=== PATIENT | male | born 1995 | race Caucasian/White ===

== ENCOUNTER → 2017-01-29 | Outpatient (CLI) | payer OTHER | END | disposition home or self-care (01) | LOC: C.LABPVFM 12:24 | PROVIDERS: ATTEND Nurse Practitioner Family | DX: J02.9 Acute pharyngitis, unspecified (principal) ==

== ENCOUNTER 2023-12-13 15:28 | Inpatient (IN) ==
--- NOTE | 2023-12-13 15:53 | Emergency Department Note ---
Impression & Plan Obstructive jaundice, Transaminitis ED Provider Note HISTORY OF PRESENT ILLNESS: Patient is a 28-year-old male presenting with jaundice. Patient reports that he started noticing that his skin was yellow 6 days ago. He states that the yellowing discoloration progressed and he went to [place] today but was referred to the emergency department. Patient reports has had diarrhea for 1.5 weeks. He reports he has had some subtle weight loss in the last 2 weeks. Denies any abdominal pain, nausea or vomiting. He denies any chest pain or shortness of breath. He denies any recent medication changes, as he does not take any medications. He denies any recent fevers. Denies any recent travel outside of the country. He reports that he recently traveled to [facility] this past weekend. ROS: as above PHYSICAL EXAM: Constitutional: Patient appears in no acute distress. HENT: Head: Normocephalic and atraumatic. Eyes: EOMI, PERRL. Scleral icterus. Mouth/Throat: Mucous membranes moist. Neck: Trachea midline. Neck supple. Cardiovascular: RRR, No murmurs, rubs or gallops. Intact distal pulses. Pulmonary/Chest: No respiratory distress. Breath sounds clear and equal bilaterally. No wheezes or rales. Abdominal: Abdomen soft, no tenderness, rebound or guarding. Musculoskeletal: No edema, tenderness or deformity noted. Skin: Warm and dry. Patient has diffuse jaundice. Psychiatric: Appropriate mood and affect for situation. Neurological: Alert and keenly responsive. CN II-XII grossly intact, moving all extremities equally and fully. MDM: - Vitals signs stable. - History obtained via patient. History as above. - Chronic conditions affecting care: None - Differential diagnoses include, but are not limited to: Obstructive jaundice; pancreatic mass; tickborne illness; hepatitis - Order placed for continuous cardiac monitoring. At this time, monitor showed rate of 78 bpm with normal sinus rhythm, per my interpretation. - External medical records reviewed. - Laboratory workup interpreted by myself showed normal WBC; normal PT/INR; stable electrolytes; elevated total bilirubin (14.1); elevated direct bilirubin (8.4); transaminitis (AST 86; ALT 131); elevated alkaline phosphatase (147); negative alcohol; negative monospot; negative anaplasma smear - Lipase unable to be resulted secondary to icteric interference, per the laboratory. - Hepaitis panel ordered. - CT abdomen/pelvis with IV contrast negative for acute pathology. - US gallbladder showed no gallstones or biliary ductal dilatation. Noted to have a possible 3.3 cm isoechoic lateral segment hepatic lesion, and radiology recommends a nonemergent liver protocol MRI. - Laboratory workup is concerning for an obstructive jaundice. - Discussed case with GI physician healthcare network consultant, Dr. Owens, at 21:10. Will plan to see patient in the morning as consultation service. - Discussion was had with case liner about patient's case and need for admission - Hospitalist consulted for admission - [facility] ASSESSMENT AND PLAN: Diagnosis: Obstructive jaundice; transaminitis Plan: admit Past Med/Surg History Problem List (Updated 12/13/23 @ 21:07 by Nancy Ma MD) Transaminitis (Acute) Obstructive jaundice (Acute) No known health problems Social History Smoking Status: Never smoker Preferred Language: [place]raini Feels Safe at Home: Yes Allergies Allergies Allergy/AdvReac Type Severity Reaction Status Date / Time No Known Allergies Allergy Verified 12/13/23 17:11 Home Meds Home Medications Medication Instructions Recorded Confirmed No Known Home Medications 12/13/23 12/13/23 Results & Data (ED) Vital Signs Vital Signs - 24 hr 12/13/23 15:36 12/13/23 15:49 12/13/23 15:58 Temperature 36.7 C Temperature Source Temporal Artery Scan Pulse Rate 75 89 Pulse Rate [Finger] 75 Respiratory Rate 20 14 Respiratory Effort / Characteristics Non-Labored Spontaneous Non-Labored Spontaneous Respiratory Depth Normal Normal Respiratory Pattern Regular Blood Pressure 125/82 Blood Pressure [Left Arm] 133/85 Blood Pressure Mean 96 Blood Pressure Mean [Left Arm] 101 Blood Pressure Position [Left Arm] Pulse Oximetry 98 100 Oxygen Delivery Method Room Air Room Air Sepsis Recent Fever Within 48 Hours No Sepsis New/Unexplained Change in Mental Status N/A Sepsis Action Taken by Nursing No Action Required 12/13/23 15:58 12/13/23 16:50 12/13/23 17:00 Temperature Temperature Source Pulse Rate 66 Pulse Rate [Finger] 70 78 Respiratory Rate 15 20 15 Respiratory Effort / Characteristics Non-Labored Spontaneous Non-Labored Respiratory Depth Normal Normal Respiratory Pattern Regular Regular Blood Pressure Blood Pressure [Left Arm] 136/74 130/68 Blood Pressure Mean Blood Pressure Mean [Left Arm] 94 88 Blood Pressure Position [Left Arm] Semi-fowlers Pulse Oximetry 100 98 100 Oxygen Delivery Method Room Air Room Air Room Air Sepsis Recent Fever Within 48 Hours Sepsis New/Unexplained Change in Mental Status Sepsis Action Taken by Nursing Laboratory Data 12/13/23 15:50 12/13/23 15:50 Lab Results 12/13/23 12/13/23 12/13/23 Range/Units 15:50 16:18 17:59 WBC 7.82 (4.8-10.8) K/ul RBC 5.63 (4.70-6.10) M/uL Hgb 15.7 (14.0-18.0) g/dl Hct 46.2 (42.0-52.0) % MCV 82.1 (80.0-100.0) fL MCH 27.9 (25.0-34.0) pg MCHC 34.0 (32.0-36.0) g/dL RDW Std Deviation 43.1 (36.4-46.3) fL RDW Coeff of Yasmani 14.6 H (11.5-14.5) % Plt Count 497 H (130-400) K/uL MPV 10.4 (9.4-12.4) fL Immature Gran % (Auto) 1.2 % Neut % (Auto) 64.0 % Lymph % (Auto) 19.6 % [place] % (Auto) 10.2 % Eos % (Auto) 3.8 % Baso % (Auto) 1.2 % Neut # (Auto) 5.01 (1.40-6.50) K/uL Lymph # (Auto) 1.53 (1.20-3.40) K/uL [place] # (Auto) 0.80 H (0.11-0.59) K/uL Eos # (Auto) 0.30 (0.00-0.50) K/uL Baso # (Auto) 0.09 (0.00-0.20) K/uL Immature Gran # (Auto) 0.09 (0.01-0.20) K/uL PT 11.0 (9.0-12.0) Seconds INR 1.0 (0.9-1.1) Sodium 136 (136-145) mmol/L Potassium 4.0 (3.5-5.1) mmol/L Chloride 99 (98-107) mmol/L Carbon Dioxide 26 (21-32) mmol/L Anion Gap 11 (3-11) BUN 17 (6-23) mg/dl Creatinine 1.34 (0.6-1.4) mg/dl Est Cr Clr Drug Dosing 99.8 ml/min Est GFR ( Amer) 84.1 ml/min Est GFR (Non-Af Amer) 72.6 ml/min BUN/Creatinine Ratio 12.7 (10-20) Glucose 90 (70-99(Fasting)) mg/dl Lactate 1.1 (0.4-2.0) mmol/L Calcium 10.3 (8.6-10.3) mg/dl Total Bilirubin 14.1 H (0.2-1.0) mg/dl Direct Bilirubin 8.4 H (0-0.2) mg/dl AST 86 H (13-39) U/L ALT 141 H (7-52) U/L Alkaline Phosphatase 147 H (34-104) U/L Total Protein 8.7 H (6.0-8.3) gm/dl Albumin 5.0 (3.4-5.0) gm/dl Globulin 3.7 (2.5-4.0) gm/dl Albumin/Globulin Ratio 1.4 (0.9-2) Lipase TNP Urine Color Dark Yellow Urine Appearance Clear (Clear) Urine pH 5.5 (4.5-7.5) Ur Specific [place] 1.020 (1.000-1.030) Urine Protein Negative (Negative) Urine Glucose (UA) Negative (Negative) Urine Ketones Trace H (Negative) Urine Blood Negative (Negative) Urine Nitrite Negative (Negative) Urine Bilirubin 3+ H (Negative) Urine Urobilinogen Negative (Negative) Ur Leukocyte Esterase Negative (Negative) Ethyl Alcohol mg/dL < 10.0 (<10.0) mg/dl Anaplasma Smear See Comment Hep Bs Antigen Negative (Negative) Hepatitis C Antibody Negative (Negative) Monoscreen Negative (Negative) Administered Medications Discontinued Medications Ioversol (Optiray 320 100ml) 93 ml IV ONCE ONE Stop: 12/13/23 16:44 Last Admin: 12/13/23 16:44 Dose: 93 ml Documented By: [facility] Imaging Data Radiologist's Impression: Gallbladder Ultrasound 12/13/23 15:39 US gallbladder CLINICAL HISTORY: Jaundice. COMPARISON STUDY: CT of the abdomen and pelvis performed earlier today. FINDINGS: Liver morphology is normal. There is a possible 3.3 x 2.6 x 2.9 cm isoechoic lateral segment hepatic lesion. This is difficult to differentiate from the adjacent liver parenchyma. No additional hepatic lesions are identified. There is no biliary ductal dilatation. The common bile duct measures 3 mm in caliber. The pancreas is unremarkable by sonography although the tail is slightly obscured. The gallbladder is contracted. There are no gallstones. There is no right hydronephrosis. IMPRESSION: 1. No gallstones or biliary ductal dilatation. 2. Possible 3.3 cm isoechoic lateral segment hepatic lesion. This may be artifactual however etiologies such as focal nodular hyperplasia are within the differential. A benign etiology is favored however this is indeterminate and a nonemergent liver protocol MRI is recommended for further evaluation. ACT 112: Negative or not required by law. Electronically signed by: Temo Carrillo M.D. 12/13/2023 5:57 PM Abdomen/Pelvis CT 12/13/23 15:51 CT OF THE ABDOMEN AND PELVIS WITH CONTRAST CLINICAL HISTORY: Painless jaundice. COMPARISON STUDY: CT of the abdomen and pelvis July 08, 2022. TECHNIQUE: Following IV administration of 93 mL of Optiray, axial images of the abdomen and pelvis were obtained from the lung bases to the proximal femurs. Images were reviewed in the axial, sagittal, and coronal planes. IV contrast was administered without complication. Automated exposure control was utilized for the study. A dose lowering technique was utilized adhering to the principles of ALARA. CT DOSE: 904.25 mGy.cm FINDINGS: Visualized portions of the lung bases are unremarkable. There is no pneumatosis, free air or portal venous gas. Liver morphology is normal. There are no hepatic lesions. There is no biliary or pancreatic ductal dilatation. The main, left and right portal veins are patent. No pancreatic lesion. Spleen, adrenal glands and kidneys are unremarkable. There is no hydronephrosis. No peripancreatic or pericholecystic infiltration is present. Caliber of small and large bowel are normal. Apparent colonic wall thickening is likely due to underdistention. Slight thickening of the appendix is unchanged. No periappendiceal infiltration is present. There is no evidence for acute appendicitis. Major vasculature is patent is no lymphadenopathy. No fluid collections are present. IMPRESSION: 1. No acute process within the abdomen or pelvis. 2. No biliary or pancreatic ductal dilatation. Normal liver morphology. No hepatic lesions. ACT 112: Negative or not required by law. Electronically signed by: Temo Carrillo M.D. 12/13/2023 4:53 PM Discharge Plan Visit Data Chief Complaint: Illness Stated Complaint: REF BY URGENT CARE, POSSIBLE JAUNDICE ED Provider: Nancy Ma Discharge Problem: Obstructive jaundice, Transaminitis Forms Stand Alone Forms: [facility] [employer] Prescriptions Prescriptions: No Action No Known Home Medications Referrals Referrals: PCP,NO [Primary Care Provider] -
[2023-12-13 16:06] LABS: Basophils # (auto) 0.09 K/uL (0.00-0.20); Basophils % (auto) 1.2 %; Eosinophils % (auto) 3.8 %; Hematocrit (blood only) 46.2 % (42.0-52.0); Hemoglobin 15.7 g/dl (14.0-18.0); Immature Granulocytes # (auto) 0.09 K/uL (0.01-0.20); Immature Granulocytes % (auto) 1.2 %; Lymphocytes # (auto) 1.53 K/uL (1.20-3.40); Lymphocytes % (auto) 19.6 %; Mean Corpuscular Hemoglobin 27.9 pg (25.0-34.0); Mean Corpuscular Volume 82.1 fL (80.0-100.0); Mean Platelet Volume 10.4 fL (9.4-12.4); Monocytes % (auto) 10.2 %; Neutrophils # (auto) 5.01 K/uL (1.40-6.50); Platelet Count 497 K/uL (130-400); RDW Coefficient of Variation 14.6 % (11.5-14.5); RDW Standard Deviation 43.1 fL (36.4-46.3); Red Blood Count 5.63 M/uL (4.70-6.10); White Blood Count 7.82 K/ul (4.8-10.8)
[2023-12-13 16:26] LABS: Alanine Aminotransferase 141 U/L (7-52); Albumin Globulin Ratio 1.4 (0.9-2); Alkaline Phosphatase 147 U/L (34-104); Anion Gap 11 (3-11); Aspartate Aminotransferase 86 U/L (13-39); BUN Creatinine Ratio 12.7 (10-20); Bilirubin,Total 14.1 mg/dl (0.2-1.0); Blood Urea Nitrogen 17 mg/dl (6-23); Calcium 10.3 mg/dl (8.6-10.3); Carbon Dioxide 26 mmol/L (21-32); Chloride 99 mmol/L (98-107); Creatinine Clr Calc Pharmacy 99.8 ml/min; Est GFR (African American) 84.1 ml/min; Est GFR (Non-African American) 72.6 ml/min; Globulin 3.7 gm/dl (2.5-4.0); Glucose 90 mg/dl (70-99(Fasting)); Sodium 136 mmol/L (136-145); Total Protein 8.7 gm/dl (6.0-8.3)
[2023-12-13 16:32] LABS: Appearance Urine Clear (Clear); Bilirubin Urine 3+ (Negative); Blood Urine Negative (Negative); Color Urine Dark Yellow; Glucose Urine UA Negative (Negative); Ketones Urine Trace (Negative); Leukocyte Esterase Urine Negative (Negative); Nitrite Urine Negative (Negative); Protein Urine Negative (Negative); Urobilinogen Urine Negative (Negative); pH Urine 5.5 (4.5-7.5)
[2023-12-13] MEDS: OPTIRAY 320 100ml IV ONE (16:44)
--- NOTE | 2023-12-13 16:55 | CT Scan Report ---
CT OF THE ABDOMEN AND PELVIS WITH CONTRAST CLINICAL HISTORY: Painless jaundice. COMPARISON STUDY: CT of the abdomen and pelvis July 08, 2022. TECHNIQUE: Following IV administration of 93 mL of Optiray, axial images of the abdomen and pelvis we re obtained from the lung bases to the proximal femurs. Images were reviewed in the axial, sagittal, and coronal planes. IV contrast was administered without complication. Automated exposure control wa s utilized for the study. A dose lowering technique was utilized adhering to the principles of ALARA . CT DOSE: 904.25 mGy.cm FINDINGS: Visualized portions of the lung bases are unremarkable. There is no pneumatosis, free air o r portal venous gas. Liver morphology is normal. There are no hepatic lesions. There is no biliary or pancreatic ductal dilatation. The main, left and right portal veins are patent. No pancreatic lesion . Spleen, adrenal glands and kidneys are unremarkable. There is no hydronephrosis. No peripancreatic or pericholecystic infiltration is present. Caliber of small and large bowel are normal. Apparent col onic wall thickening is likely due to underdistention. Slight thickening of the appendix is unchanged . No periappendiceal infiltration is present. There is no evidence for acute appendicitis. Major vasc ulature is patent is no lymphadenopathy. No fluid collections are present. IMPRESSION: 1. No acute process within the abdomen or pelvis. 2. No biliary or pancreatic ductal dilatation. Normal liver morphology. No hepatic lesions. ACT 112: Negative or not required by law. Electronically signed by: Temo Carrillo M.D. 12/13/2023 4:53 PM
[2023-12-13 17:49] LABS: Hep B Surface Ag with confirm Negative (Negative)
[2023-12-13 17:55] LABS: Hep C Ab Rflx HepCQuant RNA Negative (Negative)
--- NOTE | 2023-12-13 17:59 | Ultrasound Report ---
US gallbladder CLINICAL HISTORY: Jaundice. COMPARISON STUDY: CT of the abdomen and pelvis performed earlier today. FINDINGS: Liver morphology is normal. There is a possible 3.3 x 2.6 x 2.9 cm isoechoic lateral segmen t hepatic lesion. This is difficult to differentiate from the adjacent liver parenchyma. No additiona l hepatic lesions are identified. There is no biliary ductal dilatation. The common bile duct measure s 3 mm in caliber. The pancreas is unremarkable by sonography although the tail is slightly obscured. The gallbladder is contracted. There are no gallstones. There is no right hydronephrosis. IMPRESSION: 1. No gallstones or biliary ductal dilatation. 2. Possible 3.3 cm isoechoic lateral segment hepatic lesion. This may be artifactual however etiologi es such as focal nodular hyperplasia are within the differential. A benign etiology is favored howeve r this is indeterminate and a nonemergent liver protocol MRI is recommended for further evaluation. ACT 112: Negative or not required by law. Electronically signed by: Temo Carrillo M.D. 12/13/2023 5:57 PM
[2023-12-13 18:16] LABS: Bilirubin Direct 8.4 mg/dl (0-0.2)
--- NOTE | 2023-12-13 23:21 | History & Physical Report ---
Date of Service December 13, 2023 Assessment & Plan (1) Jaundice: Plan: 28-year-old male with no significant past medical history comes with jaundice. Patient states he noticed yellow discoloration about a week ago and is not getting better so he went to [facility] today and was advised to come here. Total bilirubin is 14.1. Direct bilirubin 8.4. AST 86. ALT 141. ALT alkaline phos is 147. Patient denies any alcohol use. Denies any drug use. In October he was in [place]. Denies any fevers. Appetite is okay. No body aches or weakness or fatigue. No nausea/ vomiting. He states having diarrhea 3-4 times daily since last 1 and 1/2 weeks. Stool colors are yellow. Thinks he lost some weight because of diarrhea. No headaches. No dizziness. No runny nose or sore throat. No cough. No difficulty swallowing. No chest pain or shortness of breath. No abdominal pain. Urine is somewhat dark. Ambulating okay. Currently resting comfortably and hemodynamically stable. Jaundice Total bilirubin 14.1 Direct bilirubin 8.4 AST 86, ALT 141, alk phos 147 CT abdomen pelvis unremarkable Gallbladder ultrasound unremarkable except for possible 3.3 cm lateral segment hepatic lesion most likely benign nonemergent liver protocol MRI is recommended Anaplasma smear and monoscreen negative Will check for Babesia screen Hepatitis C negative Will follow hepatitis panel IV fluids Repeat labs in a.m. Consult GI in a.m. for further recommendations Close monitor DVT prophylaxis SCDs for now Disposition Medical floor Full code. History of Present Illness Chief Complaint: Jaundice Primary Care Provider: NO PCP 28-year-old male with no significant past medical history comes with jaundice. Patient states he noticed yellow discoloration about a week ago and is not getting better so he went to [facility] today and was advised to come here. Total bilirubin is 14.1. Direct bilirubin 8.4. AST 86. ALT 141. ALT alkaline phos is 147. Patient denies any alcohol use. Denies any drug use. In October he was in [place]. Denies any fevers. Appetite is okay. No body aches or wea kness or fatigue. No nausea/ vomiting. He states having diarrhea 3-4 times daily since last 1 and 1/2 weeks. Stool colors are yellow. Thinks he lost some weight because of diarrhea. No headaches. No dizziness. No runny nose or sore throat. No cough. No difficulty swallowing. No chest pain or shortness of breath. No abdominal pain. Urine is somewhat dark. Ambulating okay. Currently resting comfortably and hemodynamically stable. Past medical history none Past surgical history. Right knee surgery. Social history. No smoking. No alcohol use. No drug use. Family history. Patient denies any family history. Allergies Allergy/AdvReac Type Severity Reaction Status Date / Time No Known Allergies Allergy Verified 12/13/23 17:11 Home Medications Medication Instructions Recorded Confirmed Type No Known Home Medications 12/13/23 12/13/23 History Past Med/Surg History Problem List (Updated 12/13/23 @ 23:25 by Trevon Damon MD) Jaundice Transaminitis (Acute) Obstructive jaundice (Acute) No known health problems Social History Smoking Status: Never smoker Hx Alcohol Use: Yes Alcohol type: beer Hx Substance Use: No Preferred Language: Tamazight Communication Ability: Effective Budget Report Clerk Required: No Beliefs That Will Affect Care: None Current Living Situation: Alone Other Information That Helps Us Care for You: No Feels Safe at Home: Yes Safety Concerns: Feels Safe At This Time Review of Systems Review of Systems: All systems reviewed & are unremarkable except as noted in HPI & below Physical Exam Physical Exam: General- adult Head- atraumatic Eyes- PERRL,icterus present ENT- oropharynx clear Neck- supple, no JVD. Lungs- clear to auscultation no wheezing or crackles Heart- regular rhythm; no murmur, no gallop. Abdomen- normal bowel sounds, soft, nontender, no distension Extremities- no pretibial edema, no erythema seen Neuro- alert, oriented PERRL, EOMI; no facial palsy; no dysarthria; moves extremities Skin- yellow discoloration noted Results & Data Results & Data Vital Signs (Past 12 Hours) Vital Signs Temp Pulse Pulse Resp BP BP Pulse Ox 12/13/23 22:30 71 14 98 12/13/23 22:24 73 23 97 12/13/23 22:15 72 16 98 12/13/23 22:01 128/77 12/13/23 22:01 128/77 12/13/23 22:01 128/77 12/13/23 22:01 128/77 12/13/23 22:00 65 20 99 12/13/23 21:57 68 23 98 12/13/23 21:42 73 23 98 12/13/23 21:30 69 19 99 12/13/23 21:21 68 22 99 12/13/23 21:15 72 18 98 12/13/23 21:09 64 21 98 12/13/23 21:01 121/93 12/13/23 21:01 121/93 12/13/23 20:51 71 22 97 12/13/23 20:33 77 17 99 12/13/23 20:21 67 17 97 12/13/23 20:06 69 21 98 12/13/23 19:54 75 19 98 12/13/23 19:30 66 16 98 12/13/23 19:27 71 22 98 12/13/23 19:15 68 16 98 12/13/23 19:00 149/63 H 12/13/23 19:00 149/63 H 12/13/23 18:42 69 17 98 12/13/23 18:39 64 18 97 12/13/23 18:21 67 17 98 12/13/23 18:12 69 16 97 12/13/23 18:00 136/79 12/13/23 18:00 136/79 12/13/23 18:00 83 21 100 12/13/23 17:01 130/68 12/13/23 17:01 130/68 12/13/23 17:01 130/68 12/13/23 17:01 130/68 12/13/23 17:00 78 15 130/68 100 12/13/23 16:50 136/74 12/13/23 16:50 70 20 136/74 98 12/13/23 16:33 70 17 100 12/13/23 16:12 100 12/13/23 16:09 98 12/13/23 15:58 66 15 100 12/13/23 15:58 75 14 133/85 100 12/13/23 15:51 74 18 99 12/13/23 15:49 89 12/13/23 15:36 36.7 C 75 20 125/82 98 O2 Del Method 12/13/23 22:30 12/13/23 22:24 12/13/23 22:15 08/10/24 22:01 12/13/23 22:01 12/13/23 22:01 12/13/23 22:01 12/13/23 22:00 12/13/23 21:57 12/13/23 21:42 12/13/23 21:30 12/13/23 21:21 12/13/23 21:15 12/13/23 21:09 12/13/23 21:01 12/13/23 21:01 12/13/23 20:51 12/13/23 20:33 12/13/23 20:21 12/13/23 20:06 12/13/23 19:54 12/13/23 19:30 12/13/23 19:27 12/13/23 19:15 12/13/23 19:00 12/13/23 19:00 12/13/23 18:42 12/13/23 18:39 12/13/23 18:21 12/13/23 18:12 12/13/23 18:00 12/13/23 18:00 12/13/23 18:00 12/13/23 17:01 12/13/23 17:01 12/13/23 17:01 12/13/23 17:01 12/13/23 17:00 Room Air 12/13/23 16:50 12/13/23 16:50 Room Air 12/13/23 16:33 12/13/23 16:12 12/13/23 16:09 12/13/23 15:58 Room Air 12/13/23 15:58 Room Air 12/13/23 15:51 12/13/23 15:49 12/13/23 15:36 Room Air Diagnostic Findings Laboratory Results WBC 7.82 K/ul (4.8-10.8) 12/13/23 15:50 RBC 5.63 M/uL (4.70-6.10) 12/13/23 15:50 Hgb 15.7 g/dl (14.0-18.0) 12/13/23 15:50 Hct 46.2 % (42.0-52.0) 12/13/23 15:50 MCV 82.1 fL (80.0-100.0) 12/13/23 15:50 MCH 27.9 pg (25.0-34.0) 12/13/23 15:50 MCHC 34.0 g/dL (32.0-36.0) 12/13/23 15:50 RDW Std Deviation 43.1 fL (36.4-46.3) 12/13/23 15:50 RDW Coeff of Yasmani 14.6 % (11.5-14.5) H 12/13/23 15:50 Plt Count 497 K/uL (130-400) H 12/13/23 15:50 MPV 10.4 fL (9.4-12.4) 12/13/23 15:50 Immature Gran % (Auto) 1.2 % 12/13/23 15:50 Neut % (Auto) 64.0 % 12/13/23 15:50 Lymph % (Auto) 19.6 % 12/13/23 15:50 Brule % (Auto) 10.2 % 12/13/23 15:50 Eos % (Auto) 3.8 % 12/13/23 15:50 Baso % (Auto) 1.2 % 12/13/23 15:50 Neut # (Auto) 5.01 K/uL (1.40-6.50) 12/13/23 15:50 Lymph # (Auto) 1.53 K/uL (1.20-3.40) 12/13/23 15:50 Brule # (Auto) 0.80 K/uL (0.11-0.59) H 12/13/23 15:50 Eos # (Auto) 0.30 K/uL (0.00-0.50) 12/13/23 15:50 Baso # (Auto) 0.09 K/uL (0.00-0.20) 12/13/23 15:50 Immature Gran # (Auto) 0.09 K/uL (0.01-0.20) 12/13/23 15:50 PT 11.0 Seconds (9.0-12.0) 12/13/23 15:50 INR 1.0 (0.9-1.1) 12/13/23 15:50 Sodium 136 mmol/L (136-145) 12/13/23 15:50 Potassium 4.0 mmol/L (3.5-5.1) 12/13/23 15:50 Chloride 99 mmol/L (98-107) 12/13/23 15:50 Carbon Dioxide 26 mmol/L (21-32) 12/13/23 15:50 Anion Gap 11 (3-11) 12/13/23 15:50 BUN 17 mg/dl (6-23) 12/13/23 15:50 Creatinine 1.34 mg/dl (0.6-1.4) 12/13/23 15:50 Est Cr Clr Drug Dosing 99.8 ml/min 12/13/23 15:50 Est GFR ( Amer) 84.1 ml/min 12/13/23 15:50 Est GFR (Non-Af Amer) 72.6 ml/min 12/13/23 15:50 BUN/Creatinine Ratio 12.7 (10-20) 12/13/23 15:50 Glucose 90 mg/dl (70-99(Fasting)) 12/13/23 15:50 Lactate 1.1 mmol/L (0.4-2.0) 12/13/23 15:50 Calcium 10.3 mg/dl (8.6-10.3) 12/13/23 15:50 Total Bilirubin 14.1 mg/dl (0.2-1.0) H 12/13/23 15:50 Direct Bilirubin 8.4 mg/dl (0-0.2) H 12/13/23 15:50 AST 86 U/L (13-39) H 12/13/23 15:50 ALT 141 U/L (7-52) H 12/13/23 15:50 Alkaline Phosphatase 147 U/L (34-104) H 12/13/23 15:50 Total Protein 8.7 gm/dl (6.0-8.3) H 12/13/23 15:50 Albumin 5.0 gm/dl (3.4-5.0) 12/13/23 15:50 Globulin 3.7 gm/dl (2.5-4.0) 12/13/23 15:50 Albumin/Globulin Ratio 1.4 (0.9-2) 12/13/23 15:50 Lipase TNP 12/13/23 15:50 Urine Color Dark Yellow 12/13/23 16:18 Urine Appearance Clear (Clear) 12/13/23 16:18 Urine pH 5.5 (4.5-7.5) 12/13/23 16:18 Ur Specific [place] 1.020 (1.000-1.030) 12/13/23 16:18 Urine Protein Negative (Negative) 12/13/23 16:18 Urine Glucose (UA) Negative (Negative) 12/13/23 16:18 Urine Ketones Trace (Negative) H 12/13/23 16:18 Urine Blood Negative (Negative) 12/13/23 16:18 Urine Nitrite Negative (Negative) 12/13/23 16:18 Urine Bilirubin 3+ (Negative) H 12/13/23 16:18 Urine Urobilinogen Negative (Negative) 12/13/23 16:18 Ur Leukocyte Esterase Negative (Negative) 12/13/23 16:18 Ethyl Alcohol mg/dL < 10.0 mg/dl (<10.0) 12/13/23 17:59 Anaplasma Smear See Comment 12/13/23 15:50 Hep Bs Antigen Negative (Negative) 12/13/23 15:50 Hepatitis C Antibody Negative (Negative) 12/13/23 15:50 Monoscreen Negative (Negative) 12/13/23 15:50 Impressions Gallbladder Ultrasound 12/13/23 15:39 US gallbladder CLINICAL HISTORY: Jaundice. COMPARISON STUDY: CT of the abdomen and pelvis performed earlier today. FINDINGS: Liver morphology is normal. There is a possible 3.3 x 2.6 x 2.9 cm isoechoic lateral segment hepatic lesion. This is difficult to differentiate from the adjacent liver parenchyma. No additional hepatic lesions are identified. There is no biliary ductal dilatation. The common bile duct measures 3 mm in caliber. The pancreas is unremarkable by sonography although the tail is slightly obscured. The gallbladder is contracted. There are no gallstones. There is no right hydronephrosis. IMPRESSION: 1. No gallstones or biliary ductal dilatation. 2. Possible 3.3 cm isoechoic lateral segment hepatic lesion. This may be artifactual however etiologies such as focal nodular hyperplasia are within the differential. A benign etiology is favored however this is indeterminate and a nonemergent liver protocol MRI is recommended for further evaluation. ACT 112: Negative or not required by law. Electronically signed by: Temo Carrillo M.D. 12/13/2023 5:57 PM Abdomen/Pelvis CT 12/13/23 15:51 CT OF THE ABDOMEN AND PELVIS WITH CONTRAST CLINICAL HISTORY: Painless jaundice. COMPARISON STUDY: CT of the abdomen and pelvis July 08, 2022. TECHNIQUE: Following IV administration of 93 mL of Optiray, axial images of the abdomen and pelvis were obtained from the lung bases to the proximal femurs. Images were reviewed in the axial, sagittal, and coronal planes. IV contrast was administered without complication. Automated exposure control was utilized for the study. A dose lowering technique was utilized adhering to the principles of ALARA. CT DOSE: 904.25 mGy.cm FINDINGS: Visualized portions of the lung bases are unremarkable. There is no pneumatosis, free air or portal venous gas. Liver morphology is normal. There are no hepatic lesions. There is no biliary or pancreatic ductal dilatation. The main, left and right portal veins are patent. No pancreatic lesion. Spleen, adrenal glands and kidneys are unremarkable. There is no hydronephrosis. No peripancreatic or pericholecystic infiltration is present. Caliber of small and large bowel are normal. Apparent colonic wall thickening is likely due to underdistention. Slight thickening of the appendix is unchanged. No periappendiceal infiltration is present. There is no evidence for acute appendicitis. Major vasculature is patent is no lymphadenopathy. No fluid collections are present. IMPRESSION: 1. No acute process within the abdomen or pelvis. 2. No biliary or pancreatic ductal dilatation. Normal liver morphology. No hepatic lesions. ACT 112: Negative or not required by law. Electronically signed by: Temo Carrillo M.D. 12/13/2023 4:53 PM Code Status & VTE Plan VTE Prophylaxis Plan VTE Prophylaxis will be ordered: Yes
[2023-12-13] MEDS ORDERED: ONDANSETRON INJ 2 MG/ML 2 ML VIAL IV PRN (23:50)
[2023-12-14] MEDS: D5W AND 1/2NSS 1,000 ML IV SCH (00:33)
[2023-12-14 05:06] LABS: Basophils # (auto) 0.08 K/uL (0.00-0.20); Basophils % (auto) 1.1 %; Eosinophils # (auto) 0.44 K/uL (0.00-0.50); Eosinophils % (auto) 6.1 %; Hematocrit (blood only) 44.6 % (42.0-52.0); Hemoglobin 14.8 g/dl (14.0-18.0); Immature Granulocytes # (auto) 0.07 K/uL (0.01-0.20); Lymphocytes # (auto) 1.71 K/uL (1.20-3.40); Lymphocytes % (auto) 23.5 %; Mean Corpuscular Hemoglobin 28.2 pg (25.0-34.0); Mean Corpuscular Hgb Conc 33.2 g/dL (32.0-36.0); Mean Platelet Volume 10.2 fL (9.4-12.4); Monocytes # (auto) 0.94 K/uL (0.11-0.59); Monocytes % (auto) 12.9 %; Neutrophils # (auto) 4.03 K/uL (1.40-6.50); Neutrophils % (auto) 55.4 %; Platelet Count 435 K/uL (130-400); RDW Standard Deviation 46.1 fL (36.4-46.3); Red Blood Count 5.25 M/uL (4.70-6.10); White Blood Count 7.27 K/ul (4.8-10.8)
[2023-12-14 05:20] LABS: Albumin Level 4.4 gm/dl (3.4-5.0); BUN Creatinine Ratio 14.2 (10-20); Bilirubin Direct 7.1 mg/dl (0-0.2); Bilirubin,Total 11.8 mg/dl (0.2-1.0); Calcium 9.3 mg/dl (8.6-10.3); Creatinine Clr Calc Pharmacy 118.4 ml/min; Est GFR (African American) 103.4 ml/min; Est GFR (Non-African American) 89.2 ml/min; Potassium 4.4 mmol/L (3.5-5.1); Total Protein 7.6 gm/dl (6.0-8.3)
--- NOTE | 2023-12-14 09:40 | Gastrointestinal Consultation ---
Date of Consultation December 14, 2023 Assessment & Plan (1) Hepatitis: Suspect the patient has acute hepatitis. Symptoms started several weeks ago just developing jaundice within the last several days. We may be seeing the evolution of his hepatitis which is now predominantly cholestatic with elevated bilirubin. His transaminase may have been more elevated when he initially developed his prodromal symptoms. Epidemiologic most likely causes hepatitis A results are still pending need to exclude hepatitis B as well. No signs of hepatic dysfunction no evidence of encephalopathy or coagulopathy. Imaging shows normal liver parenchyma. Less likely etiologies are autoimmune hepatitis, primary sclerosing cholangitis and John's disease in light of hyperbilirubinemia. Unlikely his preworkout supplement is a cause in light of the fact he has been on it for over 2-1/2 years ingredients are likely related to hepatotoxicity. Plan Await hepatitis A and hepatitis B serologies If negative would proceed with MRI of the liver to evaluate hepatic vessels and biliary system Would then consider sending blood work for autoimmune hepatitis and John's disease No need for liver biopsy at this time History of Present Illness Reason for Consultation: Abnormal liver enzymes Attending Physician: Sophie Matamoros MD History of Present Illness Patient presents with a several day history of jaundice and dark urine noted by his girlfriend. 2 weeks ago he noted some general malaise and anorexia. Developed some pruritus associated with the jaundice. He denies any nausea vomiting abdominal pain fever or chills. He did note some mild diarrhea which has been intermittent and no blood. Denies any family history of liver disease does not drink alcohol excessively. He does take a preworkout protein supplement supplement called INTAKE which contains caffeine and amino acids. No recent travel outside the [place] no recent antibiotic use or other drugs. Does not use nonsteroidal anti-inflammatory drugs regularly. 1 year ago he underwent a CT scan of the abdomen for self-limited right upper quadrant pain and fever that was unremarkable. He denies any recent sick contacts. No other significant past medical history Allergies Allergy/AdvReac Type Severity Reaction Status Date / Time No Known Allergies Allergy Verified 12/13/23 17:11 Home Medications Medication Instructions Recorded Confirmed Type No Known Home Medications 12/13/23 12/13/23 History Patient History Social History Smoking Status: Never smoker Hx Alcohol Use: Yes Alcohol type: beer Hx Substance Use: No Preferred Language: Qatari Communication Ability: Effective Pin Setter Required: No Beliefs That Will Affect Care: None Current Living Situation: Alone Other Information That Helps Us Care for You: No Feels Safe at Home: Yes Safety Concerns: Feels Safe At This Time Review of Systems Review of Systems: No fever No chills No SOB No CP No Abd pain No confusion or change in mental status No easy bruisability or bleeding No dysuria positive dark urine No myalgias or arthralgias Physical Exam Physical Exam: Eyes; anicteric HENT No masses Chest clear to A and P Cor S1, S2 physiologic Abd: softer nontender no masses Ext no edema Neurologic no asterixis nonfocal Results & Data Vital Signs (Past 12 Hours) Vital Signs Pulse Resp BP Pulse Ox O2 Del Method 12/14/23 08:24 51 L 16 98 12/14/23 08:03 52 L 15 99 12/14/23 07:51 66 16 99 12/14/23 07:42 55 L 18 99 12/14/23 07:18 54 L 15 99 12/14/23 07:06 51 L 12/14/23 06:45 17 98 12/14/23 06:30 13 98 12/14/23 06:12 15 100 12/14/23 06:00 15 99 12/14/23 05:42 17 98 12/14/23 05:33 12 100 12/14/23 05:21 16 100 12/14/23 04:42 17 99 12/14/23 04:36 16 99 12/14/23 04:17 79 16 143/75 H 99 Room Air 12/14/23 04:17 64 12/14/23 03:17 Room Air 12/14/23 02:54 68 16 96 12/14/23 02:30 53 L 16 12/14/23 01:51 51 L 17 12/14/23 01:20 58 L 20 12/14/23 01:02 52 L 15 12/14/23 00:50 56 L 17 12/14/23 00:44 56 L 16 12/14/23 00:32 82 18 12/14/23 00:20 56 L 16 12/14/23 00:02 67 19 12/13/23 23:54 82 20 99 12/13/23 23:21 67 18 99 12/13/23 23:06 70 19 99 12/13/23 22:51 64 18 99 12/13/23 22:45 73 17 98 12/13/23 22:30 71 14 98 12/13/23 22:24 73 23 97 12/13/23 22:15 72 16 98 12/13/23 22:01 128/77 12/13/23 22:01 128/77 12/13/23 22:01 128/77 12/13/23 22:01 128/77 12/13/23 22:00 65 20 99 12/13/23 21:57 68 23 98 12/13/23 21:42 73 23 98 12/13/23 21:30 69 19 99 Laboratory Results Lab work significant for abnormal liver enzymes Total bilirubin 14.1 direct bilirubin 8.6 AST 86 ALT 141 alkaline phosphatase 149 albumin 5.0 INR 1.0 Hepatitis C antibody negative hepatitis B surface antigen negative Monoscreen negative Hepatitis A IgM pending and hepatitis B core IgM pending Diagnostic Findings CT scan IMPRESSION: 1. No acute process within the abdomen or pelvis. 2. No biliary or pancreatic ductal dilatation. Normal liver morphology. No hepatic lesions. Ultrasound IMPRESSION: 1. No gallstones or biliary ductal dilatation. 2. Possible 3.3 cm isoechoic lateral segment hepatic lesion. This may be artifactual however etiologies such as focal nodular hyperplasia are within the differential. A benign etiology is favored however this is indeterminate and a nonemergent liver protocol MRI is recommended for further evaluation. PG Care Time/CCT Total # of Minutes Spent Total Time Spent with Patient: Total time spent is greater than 50% in coordination of care (as documented) at patient's floor/unit and/or counseling patient: Coding Level of Care Code 55416 IN/OBS CONSULT LVL 5,80M History Comprehensive Exam Comprehensive Medical Decision Making High Complexity Diagnoses Hepatitis K75.9
--- NOTE | 2023-12-14 10:54 | Hospitalist Progress Note ---
Date of Service December 14, 2023 Assessment & Plan (1) Jaundice: Plan: Pt is a 28-year-old male with no significant past medical history presenting with jaundice. Patient states he noticed yellow discoloration about a week ago and is not getting better so he went to [facility] and was advised to come here. Total bilirubin is 14.1. Direct bilirubin 8.4. AST 86. ALT 141. ALT alkaline phos is 147. Patient denies any alcohol use. Denies any drug use. In October he was in [place]. Denies any fevers, able to eat, No nausea/ vomiting. No abdominal pain. Urine is somewhat dark. He states he has been having diarrhea 3-4 times daily for the last 1 and 1/2 weeks. Stool colors are yellow. Thinks he lost some weight because of diarrhea. Jaundice Total bilirubin 14.1, Direct bilirubin 8.4, AST 86, ALT 141, alk phos [address] abdomen pelvis unremarkable Gallbladder ultrasound unremarkable except for possible 3.3 cm lateral segment hepatic lesion most likely benign nonemergent liver protocol MRI is recommended Anaplasma smear and monoscreen negative Babesia screen negative Hepatitis C negative Acute hepatitis panel pending GI consulted, appreciate recs. Recommended/ stated the following: -"suspect the patient has acute hepatitis. Symptoms started several weeks ago just developing jaundice within the last several days. We may be seeing the evolution of his hepatitis which is now predominantly cholestatic with elevated bilirubin. His transaminase may have been more elevated when he initially developed his prodromal symptoms. Epidemiologic most likely causes hepatitis A results are still pending need to exclude hepatitis B as well. No signs of hepatic dysfunction no evidence of encephalopathy or coagulopathy. Imaging shows normal liver parenchyma. Less likely etiologies are autoimmune hepatitis, primary sclerosing cholangitis and John's disease in light of hyperbilirubinemia. Unlikely his preworkout supplement is a cause in light of the fact he has been on it for over 2-1/2 years ingredients are likely related to hepatotoxicity. Plan: Await hepatitis A and hepatitis B serologies. -If negative would proceed with MRI of the liver to evaluate hepatic vessels and biliary system -Would then consider sending blood work for autoimmune hepatitis and John's disease -No need for liver biopsy at this time" Trend liver enzymes with AM labs Diet: regular at this time DVT prophylaxis: SCDs for now Dispo: Home once medically stable Admission and Anticipated Discharge Date Admission Date: December 13, 2023 Subjective pt was seen with partner at bedside. Denied acute concerns. they note he seldom drinks alcohol, no changes to diet recently. Denies fevers, chills Review of Systems Review of Systems: All systems reviewed & are unremarkable except as noted in Subjective Physical Exam Physical Exam: General: Alert, oriented. No acute distress Skin: jaundiced Psych: Appropriate mood and affect Neuro: No gross deficits HEENT: NC/AT CV: RRR Resp: Breath sounds clear bilaterally, no increased effort of breathing. Abdomen: Soft, nontender, nondistended Extremities: No edema in lower extremities bilaterally. Results & Data Results & Data Vital Signs (Past 12 Hours) Vital Signs Pulse Resp BP Pulse Ox O2 Del Method 12/14/23 08:24 51 L 16 98 12/14/23 08:03 52 L 15 99 12/14/23 07:51 66 16 99 12/14/23 07:42 55 L 18 99 12/14/23 07:18 54 L 15 99 12/14/23 07:06 51 L 12/14/23 06:45 17 98 12/14/23 06:30 13 98 12/14/23 06:12 15 100 12/14/23 06:00 15 99 12/14/23 05:42 17 98 12/14/23 05:33 12 100 12/14/23 05:21 16 100 12/14/23 04:42 17 99 12/14/23 04:36 16 99 12/14/23 04:17 79 16 143/75 H 99 Room Air 12/14/23 04:17 64 12/14/23 03:17 Room Air 12/14/23 02:54 68 16 96 12/14/23 02:30 53 L 16 12/14/23 01:51 51 L 17 12/14/23 01:20 58 L 20 12/14/23 01:02 52 L 15 12/14/23 00:50 56 L 17 12/14/23 00:44 56 L 16 12/14/23 00:32 82 18 12/14/23 00:20 56 L 16 12/14/23 00:02 67 19 12/13/23 23:54 82 20 99 12/13/23 23:21 67 18 99 12/13/23 23:06 70 19 99
[2023-12-15 06:29] LABS: Basophils # (auto) 0.06 K/uL (0.00-0.20); Basophils % (auto) 0.8 %; Eosinophils # (auto) 0.38 K/uL (0.00-0.50); Eosinophils % (auto) 5.2 %; Hematocrit (blood only) 44.8 % (42.0-52.0); Hemoglobin 14.9 g/dl (14.0-18.0); Immature Granulocytes # (auto) 0.08 K/uL (0.01-0.20); Immature Granulocytes % (auto) 1.1 %; Lymphocytes # (auto) 1.49 K/uL (1.20-3.40); Lymphocytes % (auto) 20.5 %; Mean Corpuscular Hgb Conc 33.3 g/dL (32.0-36.0); Mean Corpuscular Volume 84.2 fL (80.0-100.0); Mean Platelet Volume 10.4 fL (9.4-12.4); Monocytes # (auto) 0.92 K/uL (0.11-0.59); Monocytes % (auto) 12.7 %; Neutrophils # (auto) 4.34 K/uL (1.40-6.50); Neutrophils % (auto) 59.7 %; Platelet Count 405 K/uL (130-400); RDW Standard Deviation 46.3 fL (36.4-46.3); Red Blood Count 5.32 M/uL (4.70-6.10); White Blood Count 7.27 K/ul (4.8-10.8)
[2023-12-15 06:40] LABS: Albumin Globulin Ratio 1.3 (0.9-2); Albumin Level 4.3 gm/dl (3.4-5.0); BUN Creatinine Ratio 13.8 (10-20); Bilirubin Direct 8.4 mg/dl (0-0.2); Calcium 9.9 mg/dl (8.6-10.3); Creatinine Clr Calc Pharmacy 115.3 ml/min; Est GFR (African American) 100.2 ml/min; Est GFR (Non-African American) 86.4 ml/min; Globulin 3.3 gm/dl (2.5-4.0); Magnesium 1.9 mg/dl (1.7-2.4); Phosphorus 3.8 mg/dl (2.5-4.9); Potassium 4.2 mmol/L (3.5-5.1); Total Protein 7.6 gm/dl (6.0-8.3)
[2023-12-15 07:25] VITALS: BP 135/77; PULSE 56; RESP 16; TEMP 98.6; O2SAT 99
--- NOTE | 2023-12-15 09:59 | Hospitalist Progress Note ---
Date of Service December 15, 2023 Assessment & Plan (1) Jaundice: Plan: Pt is a 28-year-old male with no significant past medical history presenting with jaundice. Patient states he noticed yellow discoloration about a week ago and is not getting better so he went to [facility] and was advised to come here. Total bilirubin is 14.1. Direct bilirubin 8.4. AST 86. ALT 141. ALT alkaline phos is 147. Patient denies any alcohol use. Denies any drug use. In October he was in [place]. Denies any fevers, able to eat, No nausea/ vomiting. No abdominal pain. Urine is somewhat dark. He states he has been having diarrhea 3-4 times daily for the last 1 and 1/2 weeks. Stool colors are yellow. Thinks he lost some weight because of diarrhea. Jaundice Total bilirubin 14.1, Direct bilirubin 8.4, AST 86, ALT 141, alk phos [address] abdomen pelvis unremarkable Gallbladder ultrasound unremarkable except for possible 3.3 cm lateral segment hepatic lesion most likely benign nonemergent liver protocol MRI is recommended Anaplasma smear and monoscreen negative Babesia screen negative Hepatitis C negative Acute hepatitis panel pending GI consulted, appreciate recs. Recommended/ stated the following: -"suspect the patient has acute hepatitis. Symptoms started several weeks ago just developing jaundice within the last several days. We may be seeing the evolution of his hepatitis which is now predominantly cholestatic with elevated bilirubin. His transaminase may have been more elevated when he initially developed his prodromal symptoms. Epidemiologic most likely causes hepatitis A results are still pending need to exclude hepatitis B as well. No signs of hepatic dysfunction no evidence of encephalopathy or coagulopathy. Imaging shows normal liver parenchyma. Less likely etiologies are autoimmune hepatitis, primary sclerosing cholangitis and John's disease in light of hyperbilirubinemia. Unlikely his preworkout supplement is a cause in light of the fact he has been on it for over 2-1/2 years ingredients are likely related to hepatotoxicity. Plan: Await hepatitis A and hepatitis B serologies. -If negative would proceed with MRI of the liver to evaluate hepatic vessels and biliary system -Would then consider sending blood work for autoimmune hepatitis and John's disease -No need for liver biopsy at this time" Trend liver enzymes with AM labs Diet: regular at this time DVT prophylaxis: SCDs for now Dispo: Home once medically stable Admission and Anticipated Discharge Date Admission Date: December 13, 2023 Subjective pt was seen with partner at bedside. Denied acute concerns. Denied N/V, abdominal pain, tolerating food well Review of Systems Review of Systems: All systems reviewed & are unremarkable except as noted in Subjective Physical Exam Physical Exam: General: Alert, oriented. No acute distress Skin: jaundiced Psych: Appropriate mood and affect Neuro: No gross deficits HEENT: NC/AT CV: RRR Resp: Breath sounds clear bilaterally, no increased effort of breathing. Abdomen: Soft, nontender, nondistended Extremities: No edema in lower extremities bilaterally. Results & Data Results & Data Vital Signs (Past 12 Hours) Vital Signs Temp Pulse Resp BP BP Pulse Ox O2 Del Method 12/15/23 07:24 37.0 C 56 L 16 135/77 99 Room Air 12/14/23 22:42 37.1 C 64 18 125/74 100 Room Air
--- NOTE | 2023-12-15 10:53 | Gastroenterology Progress Note ---
Date of Service December 15, 2023 Assessment & Plan (1) Hepatitis: Plan: 28 year old male without past medical history admitted w/ jaundice, CT and ABD US without any pathology clinically feeling well. Hepatits A and B studies are pending, he is awake, alert and oriented without any evidence of mental status changes, denies abd pain, nausea/vomiting. His coagulation studies have been normal. He is requesting discharge, will discuss with attending. Follow Hep A and Hep B studies If negative, will need liver MRI and full liver serology Diet as tolerated If he is discharged, will need CBC, CMP and PT/IN on Friday He can be scheduled for hospital discharge appt on Friday at 0840 AM at [facility] I spent a total of 40 minutes on the date of service in review of patient's record, and previously obtained information in person and appropriate medical visit, discussion and education of plan, with patient and/or caregiver, placing orders for tests/referral/procedures as medically necessary and documentation of pertinent clinical information in patient's medical records for their visit today. Thank you for allowing us to participate in the care of this patient. Please call with any acute changes, questions or concerns. Please see addendum below with additional recommendation from my supervising physician. Admission and Anticipated Discharge Date Admission Date: December 13, 2023 Supervising Physician Co-Signing Physician Notes I saw and examined this patient with our nurse practitioner and agree with her assessment and plan. Still awaiting hepatitis A and B serologies to exclude acute hepatitis. Clinically stable no evidence of hepatic decompensation. Lab work essentially stable. No signs of asterixis abdomen soft and nontender tolerating food. Okay for discharge today will follow-up in our office later this week repeat lab work in 24 to 48 hours. Instructed to contact us if he de velops any confusion nausea vomiting or worsening symptoms. Subjective Pt was seen and evaluated, chart reviewed. Feeling well. No abdominal pain. No nausea, vomiting. Tolerating oral intake well. No fever, chills, CP, SOB. INR 1 TB 14 --> 11.8 --> 14 AST 86 --> 65 --> 75 ALT 141 --> 113 --> 117 ALKP 147 --> 137 --> 146 Hep A pending Hep B pending Hep C negative CTAP 2023: 1. No acute process within the abdomen or pelvis. 2. No biliary or pancreatic ductal dilatation. Normal liver morphology. No hepatic lesions. ABD US 2023: 1. No gallstones or biliary ductal dilatation. 2. Possible 3.3 cm isoechoic lateral segment hepatic lesion. This may be artifactual however etiologies such as focal nodular hyperplasia are within the differential. A benign etiology is favored however this is indeterminate and a nonemergent liver protocol MRI is recommended for further evaluation. Review of Systems Review of Systems: All other findings negative except as noted in HPI. Physical Exam Constitutional: WD/WN, vitals as above Respiratory: normal respiratory effort, lungs clear to auscultation Cardiovascular: RRR, no murmur, no edema Gastrointestinal (Abdomen): normal bowel sounds, soft, nontender, no hepatosplenomegaly Skin: +jaundice Results & Data Results & Data Vital Signs (Past 12 Hours) Vital Signs Temp Pulse Resp BP Pulse Ox O2 Del Method 12/15/23 07:24 37.0 C 56 L 16 135/77 99 Room Air Laboratory Results 12/15/23 Range/Units 05:57 WBC 7.27 (4.8-10.8) K/ul RBC 5.32 (4.70-6.10) M/uL Hgb 14.9 (14.0-18.0) g/dl Hct 44.8 (42.0-52.0) % MCV 84.2 (80.0-100.0) fL MCH 28.0 (25.0-34.0) pg MCHC 33.3 (32.0-36.0) g/dL RDW Std Deviation 46.3 (36.4-46.3) fL RDW Coeff of Yasmani 15.0 H (11.5-14.5) % Plt Count 405 H (130-400) K/uL MPV 10.4 (9.4-12.4) fL Immature Gran % (Auto) 1.1 % Neut % (Auto) 59.7 % Lymph % (Auto) 20.5 % [place] % (Auto) 12.7 % Eos % (Auto) 5.2 % Baso % (Auto) 0.8 % Neut # (Auto) 4.34 (1.40-6.50) K/uL Lymph # (Auto) 1.49 (1.20-3.40) K/uL [place] # (Auto) 0.92 H (0.11-0.59) K/uL Eos # (Auto) 0.38 (0.00-0.50) K/uL Baso # (Auto) 0.06 (0.00-0.20) K/uL Immature Gran # (Auto) 0.08 (0.01-0.20) K/uL Sodium 136 (136-145) mmol/L Potassium 4.2 (3.5-5.1) mmol/L Chloride 100 (98-107) mmol/L Carbon Dioxide 29 (21-32) mmol/L Anion Gap 7 (3-11) BUN 16 (6-23) mg/dl Creatinine 1.16 (0.6-1.4) mg/dl Est Cr Clr Drug Dosing 115.3 ml/min Est GFR ( Amer) 100.2 ml/min Est GFR (Non-Af Amer) 86.4 ml/min BUN/Creatinine Ratio 13.8 (10-20) Glucose 92 (70-99(Fasting)) mg/dl Calcium 9.9 (8.6-10.3) mg/dl Phosphorus 3.8 (2.5-4.9) mg/dl Magnesium 1.9 (1.7-2.4) mg/dl Total Bilirubin 14.0 H (0.2-1.0) mg/dl Direct Bilirubin 8.4 H (0-0.2) mg/dl AST 75 H (13-39) U/L ALT 117 H (7-52) U/L Alkaline Phosphatase 146 H (34-104) U/L Total Protein 7.6 (6.0-8.3) gm/dl Albumin 4.3 (3.4-5.0) gm/dl Globulin 3.3 (2.5-4.0) gm/dl Albumin/Globulin Ratio 1.3 (0.9-2) PG Care Time/CCT Total # of Minutes Spent Total Time Spent with Patient: Total time spent is greater than 50% in coordination of care (as documented) at patient's floor/unit and/or counseling patient: Coding Level of Care Code 77913 SUB INP/OBS CARE 2/35MIN Diagnoses Hepatitis K75.9
--- NOTE | 2023-12-15 12:40 | Discharge Summary ---
Discharge Summary Date of Service December 15, 2023 Principal Dx & Hospital Course #1 = Principal Diagnosis (1) Jaundice: Plan Pt is a 28-year-old male with no significant past medical history presenting with jaundice. Patient states he noticed yellow discoloration about a week ago and is not getting better so he went to [facility] and was advised to come here. Total bilirubin is 14.1. Direct bilirubin 8.4. AST 86. ALT 141. ALT alkaline phos is 147. Patient denies any alcohol use. Denies any drug use. In October he was in [place]. Denies any fevers, able to eat, No nausea/ vomiting. No abdominal pain. Urine is somewhat dark. He states he has been having diarrhea 3-4 times daily for the last 1 and 1/2 weeks. Stool colors are yellow. Thinks he lost some weight because of diarrhea. Jaundice Total bilirubin 14.1, Direct bilirubin 8.4, AST 86, ALT 141, alk phos [address] abdomen pelvis unremarkable Gallbladder ultrasound unremarkable except for possible 3.3 cm lateral segment hepatic lesion most likely benign nonemergent liver protocol MRI is recommended Anaplasma smear and monoscreen negative Babesia screen negative Hepatitis C negative Acute hepatitis panel pending on discharge GI consulted, appreciate recs. Recommended/ stated the following: -"suspect the patient has acute hepatitis. Symptoms started several weeks ago just developing jaundice within the last several days. We may be seeing the evolution of his hepatitis which is now predominantly cholestatic with elevated bilirubin. His transaminase may have been more elevated when he initially developed his prodromal symptoms. Epidemiologic most likely causes hepatitis A results are still pending need to exclude hepatitis B as well. No signs of hepatic dysfunction no evidence of encephalopathy or coagulopathy. Imaging shows normal liver parenchyma. Less likely etiologies are autoimmune hepatitis, primary sclerosing cholangitis and John's disease in light of hyperbilirubinemia. Unlikely his preworkout supplement is a cause in light of the fact he has been on it for over 2-1/2 years ingredients are likely related to hepatotoxicity. Plan: Await hepatitis A and hepatitis B serologies. -If negative would proceed with MRI of the liver to evaluate hepatic vessels and biliary system -Would then consider sending blood work for autoimmune hepatitis and John's disease -No need for liver biopsy at this time" However, on 12/15/23, pt anxious for discharge. Per GI, pt can be discharged with close followup. GI recommended/stated the following: "28 year old male without past medical history admitted w/ jaundice, CT and ABD US without any pathology clinically feeling well. Hepatitis A and B studies are pending, he is awake, alert and oriented without any evidence of mental status changes, denies abd pain, nausea/vomiting. His coagulation studies have been normal. He is requesting discharge, will discuss with attending. Follow Hep A and Hep B studies If negative, will need liver MRI and full liver serology Diet as tolerated If he is discharged, will need CBC, CMP and PT/IN on Friday He can be scheduled for hospital discharge appt on Friday at 0840 AM at [facility]" Pt discharged with close GI followup. Please ensure labs (CBC, CMP and PT/INR) are repeated on 12/17/23 per GI Please ensure GI followup on 12/19/23 Notes For Next Care Provider Please ensure labs (CBC, CMP and PT/INR) are repeated on 12/17/23 per GI Please ensure GI followup on 12/19/23 Medication Changes From Visit zofran 4mg prn Admission HPI Per Admitting Provider 28-year-old male with no significant past medical history comes with jaundice. Patient states he noticed yellow discoloration about a week ago and is not getting better so he went to [facility] today and was advised to come here. Total bilirubin is 14.1. Direct bilirubin 8.4. AST 86. ALT 141. ALT alkaline phos is 147. Patient denies any alcohol use. Denies any drug use. In October he was in [place]. Denies any fevers. Appetite is okay. No body aches or weakness or fatigue. No nausea/ vomiting. He states having diarrhea 3-4 times daily since last 1 and 1/2 weeks. Stool colors are yellow. Thinks he lost some weight because of diarrhea. No headaches. No dizziness. No runny nose or sore throat. No cough. No difficulty swallowing. No chest pain or shortness of breath. No abdominal pain. Urine is somewhat dark. Ambulating okay. Currently resting comfortably and hemodynamically stable. Past medical history none Past surgical history. Right knee surgery. Social history. No smoking. No alcohol use. No drug use. Family history. Patient denies any family history. Admission Exam Per Admitting Provider General- adult Head- atraumatic Eyes- PERRL,icterus present ENT- oropharynx clear Neck- supple, no JVD. Lungs- clear to auscultation no wheezing or crackles Heart- regular rhythm; no murmur, no gallop. Abdomen- normal bowel sounds, soft, nontender, no distension Extremities- no pretibial edema, no erythema seen Neuro- alert, oriented PERRL, EOMI; no facial palsy; no dysarthria; moves extremities Skin- yellow discoloration noted Discharge Exam General: Alert, oriented. No acute distress Skin: No noted rashes or bruises Psych: Appropriate mood and affect Neuro: No gross deficits HEENT: NC/AT CV: RRR Resp: Breath sounds clear bilaterally, no increased effort of breathing Abdomen: Soft, nontender, nondistended Extremities: No edema in lower extremities bilaterally. Updated Medication List Medication Instructions Recorded Confirmed Type ondansetron 4 mg disintegrating 4 mg PO Q8H #30 tabs 12/15/23 Rx tablet Hospital Stay Data Consultations 12/13/23 21:05 ED Decision to Admit Stat 12/14/23 08:00 Consult Gastroenterology Routine Diagnostic Imagining Performed 12/13/23 15:39 US gallbladder Stat 12/13/23 15:51 CT Abd and Pelvis [CT abd pelvis IV con only] Stat Gallbladder Ultrasound 12/13/23 15:39 US gallbladder CLINICAL HISTORY: Jaundice. COMPARISON STUDY: CT of the abdomen and pelvis performed earlier today. FINDINGS: Liver morphology is normal. There is a possible 3.3 x 2.6 x 2.9 cm isoechoic lateral segment hepatic lesion. This is difficult to differentiate from the adjacent liver parenchyma. No additional hepatic lesions are identified. There is no biliary ductal dilatation. The common bile duct measures 3 mm in caliber. The pancreas is unremarkable by sonography although the tail is slightly obscured. The gallbladder is contracted. There are no gallstones. There is no right hydronephrosis. IMPRESSION: 1. No gallstones or biliary ductal dilatation. 2. Possible 3.3 cm isoechoic lateral segment hepatic lesion. This may be artifactual however etiologies such as focal nodular hyperplasia are within the differential. A benign etiology is favored however this is indeterminate and a nonemergent liver protocol MRI is recommended for further evaluation. ACT 112: Negative or not required by law. Electronically signed by: Temo Carrillo M.D. 12/13/2023 5:57 PM Abdomen/Pelvis CT 12/13/23 15:51 CT OF THE ABDOMEN AND PELVIS WITH CONTRAST CLINICAL HISTORY: Painless jaundice. COMPARISON STUDY: CT of the abdomen and pelvis July 08, 2022. TECHNIQUE: Following IV administration of 93 mL of Optiray, axial images of the abdomen and pelvis were obtained from the lung bases to the proximal femurs. Images were reviewed in the axial, sagittal, and coronal planes. IV contrast was administered without complication. Automated exposure control was utilized for the study. A dose lowering technique was utilized adhering to the principles of ALARA. CT DOSE: 904.25 mGy.cm FINDINGS: Visualized portions of the lung bases are unremarkable. There is no pneumatosis, free air or portal venous gas. Liver morphology is normal. There are no hepatic lesions. There is no biliary or pancreatic ductal dilatation. The main, left and right portal veins are patent. No pancreatic lesion. Spleen, adrenal glands and kidneys are unremarkable. There is no hydronephrosis. No peripancreatic or pericholecystic infiltration is present. Caliber of small and large bowel are normal. Apparent colonic wall thickening is likely due to underdistention. Slight thickening of the appendix is unchanged. No periappendiceal infiltration is present. There is no evidence for acute appendicitis. Major vasculature is patent is no lymphadenopathy. No fluid collections are present. IMPRESSION: 1. No acute process within the abdomen or pelvis. 2. No biliary or pancreatic ductal dilatation. Normal liver morphology. No hepatic lesions. ACT 112: Negative or not required by law. Electronically signed by: Temo Carrillo M.D. 12/13/2023 4:53 PM Pending Results Patient Have Any Pending Studies at Discharge: No Discharge Instructions Given to Patient (Per Discharging Provider) Tanvir, You were evaluated by the tank car mechanic for your skin and eye color changes. They would like to follow the testing (hepatitis panel) that was ordered but not back yet before proceeding further. They recommend a re-check of your bloodwork on 12/17/23 and that you follow up in their office on 12/19/23. Discharging you with zofran in case you have any nausea. Please keep close follow up with your primary care provider after discharge. Please do not hesitate to come back to the emergency room if your symptoms worsen or return. It was a pleasure taking care of you while you were here. Total Time Total Time Spent Total Time Spent (In Minutes): 65
[2023-12-16 14:22] LABS: Hepatitis A Antibody IgM NON-REACTIVE (NON-REACTIVE); Hepatitis B Core Antibody IgM NON-REACTIVE (NON-REACTIVE)
== END 2023-12-15 14:08 | disposition home or self-care (01) | DRG 443 ==
LOC: ED 15:28 → EDINP 23:17 → 3E 23:51